=== PATIENT | female | born 1985 | race Asian ===

== ENCOUNTER 2020-07-06 11:25 | Emergency (ER) | payer OTHER ==
[~2020-07-06] VITALS: Ht 165.1 cm; Wt 59.0 kg
[2020-07-06 11:30] VITALS: Ht 165.1 cm; Wt 59.0 kg
[2020-07-06] MEDS ORDERED: MOT600 PO (11:59)
[2020-07-06 12:23] VITALS: BP 141/85
== END 2020-07-06 12:23 | disposition home or self-care (01) ==
LOC: ED 11:25
DX: S93.402A Sprain of unspecified ligament of left ankle, initial encounter (principal); X58.XXXA Exposure to other specified factors, initial encounter; Y93.89 Activity, other specified; Y92.89 Other specified places as the place of occurrence of the external cause; Y99.8 Other external cause status